=== PATIENT | female | born 1945 | race Two or more races ===

== ENCOUNTER 2017-11-15 08:11 | Outpatient (CLI) | payer OTHER ==
[~2017-11-15 08:11] MED LIST: AMLODIPINE BESY10 MG; ATORVASTATIN CA40 MG; CARVEDILOL12.5 MG; GLIMEPIRIDE2 MG; LOSARTAN POTASS25 MG; NORVASC10 MG
== END 2017-11-15 09:00 | disposition home or self-care (01) ==
LOC: EDBD 08:11 → NUCLEAR 08:11
DX: I20.8 Other forms of angina pectoris (principal)
CPT/HCPCS: 78452; 93017; A9500; J0153